=== PATIENT | female | born 1965 | race Two or more races ===

== ENCOUNTER 2020-04-03 13:00 | Inpatient (IN) | payer OTHER ==
[~2020-04-03] VITALS: Ht 160 cm; Wt 76.2 kg
== END 2020-04-11 16:57 | disposition home or self-care (01) | DRG 331 ==
LOC: EDSTATUS 13:00 → ADM 13:00 → O/R 04-08 05:45 → SURG 04-08 05:45 → RECOVERY 04-08 11:30 → SURG 04-11 16:57
PROVIDERS: ADMIT Colon & Rectal Surgery; ATTEND Colon & Rectal Surgery
PROC: 07TB4ZZ Resection of Mesenteric Lymphatic, Percutaneous Endoscopic Approach (ICD-10-PCS; 2020-04-08)
PROC: 0DBL4ZZ Excision of Transverse Colon, Percutaneous Endoscopic Approach (ICD-10-PCS; principal; 2020-04-08 11:30)
DX: D12.3 Benign neoplasm of transverse colon (principal); R59.0 Localized enlarged lymph nodes

== ENCOUNTER 2020-04-07 10:45 | Day surgery (SDC) | payer OTHER | END 2020-04-07 16:05 | disposition home or self-care (01) | LOC: AMB-ENDOS 10:45 → ADM 13:00 → AMB-ENDOS 13:00 | PROVIDERS: ATTEND Colon & Rectal Surgery | DX: K62.89 Other specified diseases of anus and rectum (principal); K64.1 Second degree hemorrhoids ==

== ENCOUNTER 2021-03-06 08:20 | Day surgery (SDC) | payer OTHER | END 2021-03-06 12:45 | disposition home or self-care (01) | LOC: AMB-ENDOS 08:20 | PROVIDERS: ATTEND Colon & Rectal Surgery | DX: D12.4 Benign neoplasm of descending colon (principal); K64.2 Third degree hemorrhoids; Z20.822 Contact with and (suspected) exposure to COVID-19 ==